=== PATIENT | male | born 1980 | race Caucasian/White ===

== ENCOUNTER 2020-07-12 09:07 | Emergency (ER) | payer BC, SELFPAY ==
[2020-07-12 09:08] VITALS: BP 140/79; PULSE 85; RESP 20; TEMP 36.3; O2SAT 100
--- NOTE | 2020-07-12 11:19 | ED.EPISTAXIS ---
HPI - Epistaxis General Chief complaint: Epistaxis Stated complaint: R NOSE BLEED Time Seen by Provider: 07/12/20 09:20 Source: patient Mode of arrival: ambulatory Limitations: no limitations History of Present Illness HPI Narrative: 40-year-old with a history of anxiety disorder here with complaints of bleeding from the right nostril. Patient states that it he was having blood in his mouth he thinks its posterior nasal bleed. He denies similar symptoms in the past. 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 Denies any trauma MD complaint: epistaxis Location: right nostril Onset (ago): day(s) (1) Duration: intermittent Related Data Home Medications Medication Instructions Recorded Confirmed alprazolam 07/12/20 bupropion HCl PO 07/12/20 zolpidem 07/12/20 Allergies Allergy/AdvReac Type Severity Reaction Status Date / Time No Known Allergies Allergy Verified 07/12/20 09:10 Review of Systems Review of Systems: All systems reviewed & are unremarkable except as noted in HPI and below Constitutional: Constitutional: Reports no additional constitutional complaints Eyes: Eyes: Reports no additional eye complaints ENT: Reports as per HPI Cardiovascular: Cardiovascular: Reports no additional cardiovascular complaints Respiratory: Respiratory: Reports no additional respiratory complaints Gastrointestinal: Gastrointestinal: Reports no additional gastrointestinal complaints PMFSH Social History Social History Gender identity (if verbalized by the patient): Male Exam Narrative: Exam Narrative: GENERAL: Well-appearing, well-nourished, and in no acute distress. HEAD: Normocephalic, atraumatic. EYES: PERRLA and EOMI. ENT: Naresno active bleeding ld the right nare are swollen NECK: Supple. CHEST: Clear to auscultation. No respiratory distress. HEART: Regular rate and rhythm. No murmur heard. Normal peripheral pulses. EXTREMITIES: Normal range of motion. No edema. SKIN: Warm, dry, no rash. NEURO: No focal deficits. Alert and oriented x3. PSYCH: Normal mood . Course Course Emergency Course: Patient had no further episodes of nasal bleed while he was here in the ER. I have given him Zach-Synephrine nasal spray . Vital Signs Vital signs: Vital Signs Temperature 36.3 C L 07/12/20 09:08 Pulse Rate 85 07/12/20 09:08 Respiratory Rate 20 07/12/20 09:08 Blood Pressure 140/79 07/12/20 09:08 Pulse Oximetry 100 07/12/20 09:08 Temperature 36.3 C L 07/12/20 09:08 Pulse Rate 85 07/12/20 09:08 Respiratory Rate 20 07/12/20 09:08 Blood Pressure 140/79 07/12/20 09:08 Pulse Oximetry 100 07/12/20 09:08 Discharge Plan Discharge Clinical Impression: Epistaxis Patient Disposition: Home, Self-Care Condition: Stable Instructions: Antibiotic Form, Nosebleed (ED) Additional Instructions: Advised to use Zach-Synephrine for nasal spray as prescribed, also recommended him to follow-up with ENT Prescriptions: No Action bupropion HCl 150 mg tablet sustained-release 12 hr PO RF: 0 alprazolam 0.25 mg tablet RF: 0 zolpidem 10 mg tablet RF: 0 Follow-up/Referrals: Roni Ty MD [Physician] - [facility],MEETA Maldonado [Primary Care Provider] - Time of Disposition:
[2020-07-12 11:30] VITALS: BP 140/79; PULSE 78; RESP 18; O2SAT 100
== END 2020-07-12 11:30 | disposition home or self-care (01) ==
PROVIDERS: Emergency Provider Family Medicine; PCP Physician Assistant
DX: R04.0 Epistaxis (principal); F41.9 Anxiety disorder, unspecified
CPT/HCPCS: 99283; A9270

== ENCOUNTER 2020-08-31 11:22 | Emergency (ER) | payer BC, SELFPAY ==
--- NOTE | ~2020-08-31 | CT_ITS ---
EXAMINATION: CT lumbar spine wo con DATE: 08/31/2020 11:52 INDICATION: Low back pain. TECHNIQUE: Computed tomography (CT) of the lumbar spine was performed without intravenous contrast. A utomated exposure control and iterative reconstruction technique were employed. The dose-length produ ct was 752.72 mGy-cm. COMPARISON: None FINDINGS: There is 4 degrees dextrocurvature of lumbar spine. There is 4 mm retrolisthesis of L5 on S 1. Vertebral body heights are normal. There is mildly decreased disc height at L5-S1. The following d isc levels are specifically discussed: L1-L2: The disc does not extend beyond the endplate margin. There is mild bilateral facet joint osteo arthritis. There is no neural foraminal stenosis. There is no central canal stenosis. L2-L3: The disc does not extend beyond the endplate margin. There is mild bilateral facet joint osteo arthritis. There is no neural foraminal stenosis. There is no central canal stenosis. L3-L4: The disc does not extend beyond the endplate margin. There is mild bilateral facet joint osteo arthritis. There is mild left neural foraminal stenosis. There is no central canal stenosis. L4-L5: The disc is bulging. There is mild bilateral facet joint osteoarthritis. There is mild bilater al neural foraminal stenosis. There is mild central canal stenosis. L5-S1: The disc is bulging with superimposed left central extrusion with mass effect on left S1 nerve root in left lateral recess. There is mild bilateral facet joint osteoarthritis. There is mild right and moderate left neural foraminal stenosis. There is mild central canal stenosis. IMPRESSION: 1. Moderate lower lumbar spondylosis with large extrusion at L5-S1 with mass effect on left S1 nerve root. Reviewed, dictated and finalized at location A. IMPRESSION: 1. Moderate lower lumbar spondylosis with large extrusion at L5-S1 with mass ef fect on left S1 nerve root.
[2020-08-31] MEDS: KETOROLAC 30 MG/ML VIAL (*BKC) IV PUSH (12:03)
[2020-08-31] MEDS: fentaNYL CITRATE INJ (*CRX) 100 MCG/2 ML VIAL 50 MCG IV PUSH (12:04)
[2020-08-31 12:13] LABS: Basophils Percent Auto 0.7 % (0.2-1.2); Eosinophils Absolute Auto 0.1 K/mm3 (0-0.3); Hematocrit 46.6 % (42.0-52.0); Hemoglobin 15.8 g/dL (14.0-18.0); Immature Granulocyte Absolute 0.01 K/mm3 (0.00-0.031); Immature Granulocyte Percent A 0.2 % (0-0.5); Lymphocytes Absolute Auto 1.43 K/mm3 (0.9-3.2); Lymphocytes Percent Auto 23.3 % (18.3-44.2); Mean Corpuscular HGB Conc 33.9 g/dl (32-36); Mean Corpuscular Hemoglobin 30.2 pg (26-34); Mean Corpuscular Volume 88.9 fl (80-100); Mean Platelet Volume 10.1 fl (7.4-10.4); Monocytes Absolute Auto 0.5 K/mm3 (0.1-0.6); Monocytes Percent Auto 8.3 % (2.6-8.5); Neutrophils Absolute Auto 4.1 K/mm3 (1.3-6.7); Neutrophils Percent Auto 66.5 % (45.5-73.1); Platelet Count Result 216 k/mm3 (150-375); Red Blood Count 5.24 M/mm3 (4.6-6.20); Red Cell Distribution Width 12.3 % (11.5-14.5); White Blood Count 6.2 K/mm3 (4.5-10.0)
[2020-08-31] MEDS: DEXAMETHASONE SOD PHOS INJ 4 MG/ML VIAL 10 MG IV PUSH (12:13)
[2020-08-31] MEDS: LORazepam INJ (*CRX) 2 MG/ML VIAL 0.5 MG IV PUSH (12:21)
[2020-08-31 12:23] LABS: Anion Gap 4 mmol/L (8-16); Blood Urea Nitrogen 17 mg/dL (9-20); Calcium 10.2 mg/dL (8.4-10.2); Carbon Dioxide 31 mmol/L (22-30); Chloride 106 mmol/L (98-107); Estimated Glomerular Filt Rate > 60; Glucose 101 mg/dL (75-110); Potassium 4.1 mmol/L (3.4-5.0); Sodium 141 mmol/L (137-145)
--- NOTE | 2020-08-31 13:01 | ED.BACK ---
HPI - Back Pain/Injury General Chief Complaint: Back Pain/Injury Stated Complaint: back pain/sciatic pain Time Seen by Provider: 08/31/20 11:28 Source: patient Mode of arrival: ambulatory Limitations: no limitations History of Present Illness HPI Narrative: 40-year-old with a history of anxiety disorder here with complaints of low back pain on and off for past 2 weeks. Patient states that he was sledding 3 wks ago had pain in the tailbone area for 2 weeks and for past 1 week been having left-sided sciatic pain. He states that he woke up with severe pain this morning occasionally his left leg gets numb. He denies any bladder or bowel incontinence. MD elicited complaint: back pain Timing: constant Severity: moderate Similar Symptoms Previously: No Quality: dull and aching Radiation: left leg below the knee Exacerbating factors: movement Relieving factors: other (Lying on prone position) Associated symptoms: denies other symptoms Related Data Home Medications Medication Instructions Recorded Confirmed alprazolam 07/12/20 bupropion HCl PO 07/12/20 zolpidem 07/12/20 Allergies Allergy/AdvReac Type Severity Reaction Status Date / Time No Known Allergies Allergy Verified 07/12/20 09:10 Review of Systems Review of Systems: All systems reviewed & are unremarkable except as noted in HPI and below Constitutional: Constitutional: Reports no additional constitutional complaints ENT: Reports system reviewed and no additional complaints, except as documented Cardiovascular: Cardiovascular: Reports no additional cardiovascular complaints Respiratory: Respiratory: Reports no additional respiratory complaints Gastrointestinal: Gastrointestinal: Reports no additional gastrointestinal complaints Genitourinary: Genitourinary: Reports no additional male genitourinary complaints Musculoskeletal: Musculoskeletal: Reports as per HPI Neurologic: Reports system reviewed and no additional complaints, except as documented [facility] Social History Social History Gender identity (if verbalized by the patient): Male Exam Narrative: Exam Narrative: GENERAL: Well-appearing, thin , and in no acute distress.pt feels comfortable lying in prone position HEAD: Normocephalic, atraumatic. EYES: PERRLA and EOMI.. NECK: Supple. CHEST: Clear to auscultation. No respiratory distress. HEART: Regular rate and rhythm. No murmur heard. Normal peripheral pulses. ABDOMEN: Soft, nontender, nondistended, normal active bowel sounds. EXTREMITIES: Normal range of motion. No edema. SKIN: Warm, dry, no rash. NEURO: No focal deficits. Alert and oriented x3. PSYCH: Normal mood and affect. Course Course Emergency Course: Did obtain a CT of his lumbar spine which shows L5-S1 disc herniation. Discussed with Dr. Torres orthopedic surgeon at [facility] , recommended Medrol Dosepak along with gabapentin and hydrocodone will see him in the office in the next few days. Patient states his pain is slightly improved with pain medication. Patient does feel comfortable going home and following with Dr. Torres in the next few days. MDM - Back Pain/Injury MDM Narrative Medical decision making narrative: With a given history of recent injury and occasional numbness to his left leg and get a CT of the lumbar spine noncontrast also does CBC and chemistry make sure that he has no discitis. We will give him fentanyl, Decadron and Ativan for pain control. Lab Data Result diagrams: 08/31/20 12:00 08/31/20 12:00 Labs: Lab Results 08/31/20 08/31/20 Range/Units 12:00 12:00 WBC 6.2 (4.5-10.0) K/mm3 RBC 5.24 (4.6-6.20) M/mm3 Hgb 15.8 (14.0-18.0) g/dL Hct 46.6 (42.0-52.0) % MCV 88.9 (80-100) fl MCH 30.2 (26-34) pg MCHC 33.9 (32-36) g/dl RDW 12.3 (11.5-14.5) % Plt Count 216 (150-375) k/mm3 MPV 10.1 (7.4-10.4) fl Immature Gran % (Auto) 0
[2020-08-31 13:31] LABS: Add Urine Microscopic? YES; Appearance Urine Clear (Clear); Bacteria Urine Trace /hpf; Bilirubin Urine Negative (Negative); Blood Urine Negative (Negative); Color Urine Yellow (Yellow); Glucose Urine UA Negative (Negative); Ketones Urine Trace mg/dL (Negative); Leukocyte Esterase Ur Negative LEU/UL (Negative); Mucus Urine Few /lpf; Nitrate Urine Negative (Negative); Protein Urine Negative (Negative); RBC Urine 0-2 /hpf (0-2); Specific Grav Ur 1.021 (1.001-1.035); Urobilinogen Urine Negative mg/dL (<2.0); WBC Urine 0-3 /hpf
--- NOTE | 2020-08-31 18:35 | PC.NURSE ---
Pt was given 0.5mg of Ativan by this RN. Med would not scan while in AUG, called charge nurse Kimberly to witness that med was not scanning. Was informed to go ahead and give med. Waste cheat was completed and sent to pharmacy.
== END 2020-08-31 13:55 | disposition home or self-care (01) ==
PROVIDERS: Emergency Provider Family Medicine; PCP Physician Assistant
DX: M51.27 Other intervertebral disc displacement, lumbosacral region (principal); M47.816 Spondylosis without myelopathy or radiculopathy, lumbar region
CPT/HCPCS: 36415; 72131; 80048; 81001; 85025; 96374; 96375; 99284; J1100; J1885; J2060; J3010

== ENCOUNTER 2023-06-22 16:33 | Emergency (ER) | payer OTHER, SELFPAY ==
--- NOTE | 2023-06-22 16:41 | ED.GENADULT ---
HPI - General Adult General Chief complaint: Upper Respiratory Infection Stated complaint: Cough/Shortness of Breath Source: patient, RN notes reviewed and old records reviewed Mode of arrival: ambulatory Limitations: no limitations History of Present Illness HPI narrative: 43-year-old male patient presents to [facility] with complaints sinus congestion, cough, headache, myalgias that started on 06/11/2023. patient states he thinks he had COVID but never took a test. Patient taking [id number] medications but states symptoms are getting worse patient states now has green phlegm production and bilateral ear pressure/popping, and sinus pain. MD complaint: sinus congestion/pain Onset (ago): day(s) () Related Data Home Medications Medication Instructions Recorded Confirmed alprazolam 0.25 mg tablet 07/12/20 lisinopril 5 mg tablet mg 06/22/23 Allergies Allergy/AdvReac Type Severity Reaction Status Date / Time No Known Allergies Allergy Verified 07/12/20 09:10 Review of Systems Constitutional: Constitutional: Reports no additional constitutional complaints, Denies body ache(s), Denies chills, Reports fatigue, Denies fever(s) and Reports headache(s) Eyes: Eyes: Reports no additional eye complaints and Denies blurry vision ENT: Reports system reviewed and no additional complaints, except as documented, Denies vertigo, Denies dizziness, Denies ear discharge, Reports otalgia, Denies facial pain, Reports headache(s), Reports nasal congestion, Reports nasal discharge, Reports sinus pain, Reports sinus pressure and Denies sore throat Cardiovascular: Cardiovascular: Reports no additional cardiovascular complaints, Denies chest pain, Denies chest pain at rest, Denies rapid heart rate and Denies dyspnea Respiratory: Respiratory: Reports no additional respiratory complaints, Reports chest congestion, Reports cough, Denies pain on inspiration, Denies pain with cough and Denies dyspnea Gastrointestinal: Gastrointestinal: Denies abdominal pain, Denies diarrhea, Denies nausea and Denies vomiting Integumentary/Breasts: Skin/Breast: Denies rash Neurologic: Reports system reviewed and no additional complaints, except as documented, Denies vertigo, Denies dizziness and Denies headache(s) Endocrine: Endocrine: Denies fatigue [facility] Social History Social History Gender identity (if verbalized by the patient): Male Comments At the time of my signature, I reviewed and agree with the nursing past medical, surgical, social, and family history. There is no relevant family history pertinent to the patient complaint. Exam Const: General: cooperative, healthy appearing, no acute distress and well nourished Nutritional Appearance: well nourished Orientation/consciousness: patient oriented x3 Limitations: no limitations HENMT: Head: normal to inspection and normocephalic Ears: external ears normal, TM's normal bilaterally, mastoids normal and Abnormal EAC present Face/Nose/Sinus: Abnormal mucous membranes and turbinates present boggy and erythematous and Nasal discharge present purulent Face and sinus: no erythema and sinus tenderness maxillary Mouth: Yes Normal oral and palatal mucosa present, Yes oropharynx normal and Yes moist mucous membranes Throat: tonsils normal, uvula midline and no uvular edema Eyes: General: appearance normal, both eyes and all related structures Sclera: sclerae normal Pupils: Equal, round and reactive pupils present Resp: Effort & Inspection: normal respiratory effort, able to speak in complete sentences, no audible wheezes, no cough, no respiratory distress and no retractions Auscultation: clear to auscultation bilaterally, no crackles, no rales, no rhonchi and no wheezes Cardio: Rate: regular rate Rhythm: regular rhythm Skin: General skin exam: normal color and no rashes or lesions noted Neuro: General: patient oriented x3 Cranial nerves:
[2023-06-22 16:44] VITALS: BP 123/86; PULSE 85; RESP 16; TEMP 36.3; O2SAT 100
== END 2023-06-22 16:55 | disposition home or self-care (01) ==
PROVIDERS: Emergency Provider Registered Nurse; PCP Hospitalist
DX: J01.90 Acute sinusitis, unspecified (principal)
CPT/HCPCS: 99213; G0463

== ENCOUNTER 2025-06-10 10:32 | Emergency (ER) | payer OTHER, SELFPAY ==
[2025-06-10 10:40] VITALS: BP 147/84; PULSE 70; RESP 18; TEMP 36.4; O2SAT 100
--- NOTE | 2025-06-10 10:46 | ED.URI ---
HPI - URI/Sore Throat General Chief Complaint: Upper Respiratory Infection Stated Complaint: URI Source: patient Mode of arrival: ambulatory Limitations: no limitations History of Present Illness HPI Narrative: this is a 45-year-old male patient that presents with a five-day history of cough, sore throat, sinus tenderness and nausea. Patient states he has a very harsh nonproductive cough. A lot of sinus drainage. During the exam he got notification that his 3-year-old just tested positive for influenza A. He denies any other distress or concerns otherwise. No shortness of breath or chest pain no diarrhea. patient has a good appetite and is able to intake fluids MD elicited complaint: fever, cough, sore throat, rhinorrhea, nasal congestion and sinus pain Onset (ago): day(s) (5) Consistency: constant Severity: mild Able to tolerate fluids by mouth: Yes Exacerbating factors: nothing Relieving factors: nothing Context: sick contacts Associated symptoms: fever, chills, myalgias, rhinorrhea, nasal congestion, sore throat and cough Treatments prior to arrival: acetaminophen Related Data Home Medications ?Medication ?Instructions ?Recorded ?Confirmed ?Last Taken ?Type alprazolam 0.25 mg tablet 07/12/20 Unknown History lisinopril 5 mg tablet mg 06/22/23 Unknown History Allergies Allergy/AdvReac Type Severity Reaction Status Date / Time No Known Allergies Allergy Verified 06/10/25 10:34 Review of Systems Review of Systems: All systems reviewed & are unremarkable except as noted in HPI and below PMFSH Social History Social History Gender identity (if verbalized by the patient): Male Exam Const: General: healthy appearing Nutritional Appearance: well nourished Orientation/consciousness: patient oriented x3 Limitations: no limitations HENMT: Head: normal to inspection Ears: external ears normal Face/Nose/Sinus: Nasal discharge present mucoid Face and sinus: sinus tenderness frontal and maxillary Mouth: Yes Normal oral and palatal mucosa present Teeth and gingiva: dentition normal Throat: posterior oropharynx normal Eyes: Conjunctivae: conjunctivae normal Pupils: Equal, round and reactive pupils present EOM: EOMs intact bilaterally Neck: Neck: normal visual inspection and no lymphadenopathy Resp: Effort & Inspection: normal respiratory effort Auscultation: clear to auscultation bilaterally Cardio: Rate: regular rate Rhythm: regular rhythm GI: GI Palp: Yes Soft to palpation Auscultation: normal bowel sounds Skin: General skin exam: normal color Rashes: no rashes Wounds: no wounds Neuro: General: patient oriented x3 Cranial nerves: Yes Nystagmus not present Speech: normal speech Gait exam (Neuro): Normal gait present Extrem: General: normal to inspection and no clubbing, cyanosis or edema Psych: Mental Status: mental status grossly normal Affect: normal affect Attitude: cooperative Course Course Emergency Course: this is a 45-year-old male patient that presents with a five-day history of cough, sore throat, sinus tenderness and nausea. Patient states he has a very harsh nonproductive cough. A lot of sinus drainage. During the exam he got notification that his 3-year-old just tested positive for influenza A. He denies any other distress or concerns otherwise. No shortness of breath or chest pain no diarrhea. patient has a good appetite and is able to intake fluids vitals signs stable Influenza, Strep negative. Discussed treatment and management. will send for antibiotics. Educated on symptom management follow-up. Educated him to Increase fluids, rest, Continue with symptomatic management,- cough and cold medication as package instructions - Tylenol Motrin as needed for pain and fever - Vicks Vaporub for cough suppression, Antibiotic as prescribed. follow-up with your PCP in next 1-2 days for further evaluation exam Return immediately to the emergency department any worrisome sign or symptom. answered all of their questions to their satisfaction they are agreeable to this plan. They deny any further needs or concerns to be addressed prior to discharge answered all questions to satisfaction he is agreeable plan. Denies any further needs or concerns to be addressed prior to discharge Level of Care: Express Care Visit Vital Signs Vital signs: Vital Signs Temperature 97.6 F 06/10/25 10:40 Pulse Rate 70 06/10/25 10:40 Respiratory Rate 18 06/10/25 10:40 Blood Pressure 147/84 H 06/10/25 10:40 Pulse Oximetry 100 06/10/25 10:40 Oxygen Delivery Room Air 06/10/25 10:40 Temperature 97.6 F 06/10/25 10:40 Pulse Rate 70 06/10/25 10:40 Respiratory Rate 18 06/10/25 10:40 Blood Pressure 147/84 H 06/10/25 10:40 Pulse Oximetry 100 06/10/25 10:40 Oxygen Delivery Room Air 06/10/25 10:40 [employer] Narrative Medical decision making narrative: this is a 45-year-old male patient that presents with a five-day history of cough, sore throat, sinus tenderness and nausea. Patient states he has a very harsh nonproductive cough. A lot of sinus drainage. During the exam he got notification that his 3-year-old just tested positive for influenza A. He denies any other distress or concerns otherwise. No shortness of breath or chest pain no diarrhea. patient has a good appetite and is able to intake fluids vitals signs stable Influenza, Strep negative. Discussed treatment and management. will send for antibiotics. Educated on symptom management follow-up. Educated him to Increase fluids, rest, Continue with symptomatic management,- cough and cold medication as package instructions - Tylenol Motrin as needed for pain and fever - Vicks Vaporub for cough suppression, Antibiotic as prescribed. follow-up with your PCP in next 1-2 days for further evaluation exam Return immediately to the emergency department any worrisome sign or symptom. answered all of their questions to their satisfaction they are agreeable to this plan. They deny any further needs or concerns to be addressed prior to discharge answered all questions to satisfaction he is agreeable plan. Denies any further needs or concerns to be addressed prior to discharge Differential Diagnosis Differential Diagnosis: influenza a, strep, viral syndrome, sinusitis Medical Records I have reviewed the following patient records and this information was taken into consideration when formulating the assessment and plan.: previous labs, previous ER visits and previous clinic visits Lab Data [facility] Lab Attestation statement: I personally reviewed the patient's lab results. Lab results narrative: influenza a and B negative, strep negative Labs: Lab Results 06/10/25 Range/Units 11:10 POC Influenza A Ag Negative (Negative) POC Influenza B Ag Negative (Negative) POC Grp A Strep Screen Negative (Negative) Discharge Plan Discharge Clinical Impression: Upper respiratory infection Qualifiers: URI type: unspecified URI Qualified Code(s): J06.9 - Acute upper respiratory infection, unspecified Patient Disposition: Home Condition: Stable Instructions: Antibiotic Form, Upper Respiratory Infection (ED) Additional Instructions: Increase fluids, rest, Continue with symptomatic management,- cough and cold medication as package instructions - Tylenol Motrin as needed for pain and fever - Vicks Vaporub for cough suppression, Antibiotic as prescribed. follow-up with your PCP in next 1-2 days for further evaluation exam Return immediately to the emergency department any worrisome sign or symptom. Patient Language: [place] Citizen Prescriptions: New azithromycin [Zithromax Z-Esteban] 250 mg tablet See Rx Instructions .ROUTE .COMPLEX Qty: 6 0RF Rx Instructions: For 250 mg dose pack: take 500 mg today (day 1), then 250 mg for 4 days (days 2-5) No Action lisinopril 5 mg tablet amoxicillin-pot clavulanate 875-125 mg tablet 1 tablet PO Q12H 7 Days Qty: 14 0RF alprazolam 0.25 mg tablet Follow-up/Referrals: Marcellus,MD Carlos [Primary Care Provider, Unknown] Time of Disposition: 11:15
[2025-06-10 11:11] LABS: EDINFLUASCREEN Negative (Negative); EDINFLUBSCREEN Negative (Negative); EDSTREPNEGPOS1 Negative (Negative)
--- OUTSIDE RECORDS SUMMARY | 2025-06-10 12:09 | XMS_ITS | Encounter Summary ---
Author Organization [facility] Healthcare Address [address] [place] [address] Care Team Providers Care Support Director Name Role Phone Carlos Germain MD Primary Care Provider [phone] Keke Concepcion PT Unavailable Unavailable Reason for Visit * Reason Onset Date Comments Anxiety/Depression 06/07/2025 Migraine 06/07/2025 Shortness of Breath 06/07/2025 Encounter Details Date Type Department Care Team (Late st Contact Info) Description 06/07/2025 Nurse Triage [facility] [address] [place] [address] Carlos Germain MD [address] [place] [address] Social History Tobacco Use Types Packs/Day Years Used Date Smoking Tobacco: Never Smokeless Tobacco: Never Alcohol Use Standard Drinks/Week Comments No 0 (1 standard drink = 0.6 oz pur e alcohol) AUDIT-C Answer Date Recorded Q1: How often do you have a drink containing alc ohol? Monthly or less 01/26/2023 Q2: How many drinks containi ng alcohol do you have on a typical day when you are drinking? 1 or 2 01/26/2023 Q3: How often do you have si x or more drinks on one occasion? Never 01/26/2023 PHQ-2 Answer Date Recorded PHQ-2 Total Score (If total score is 3 or more points, staff should administer the PHQ-9) 3 05/13/2025 PHQ-9 Answer Date Recorded PHQ-9 Total Score 12 05/13/2025 Personal Safety Answer Date Recorded Have you ever been in or are you currently in a harmful physical or emotional relationship or is someone making you feel afraid or unsafe? Denies 12/16/2022 Sex and Gender Information Value Date Recorded Sex Assigned at Not on file Legal Sex Male 12:11 AM [employer] Gender Identity Not on file Sexual Orientation Not on file documented as of this encounter Miscellaneous Notes * Telephone Encounter - Dominique Vaughn MA - 06/10/2025 9:34 AM CST VIET Germain [employer] * Telephone Encounter - Katy Diamond RN - 06/07/2025 5:16 PM [employer] Reason for Conversation Anxiety/Depression, Migraine, and Shortness of Breath Background Pt in ER 05/15/25 for worsening symptoms of headache/sinus pressure, dizziness, blurred vision, eardiscomfort from a visit beginning of the month of April 2025. Pt calls today with increased feelings of anxiety, depression, migraine, sob, blurred vision, and dizziness. Pt reports he has beenmany places and main concern is trying to get in to see psychiatrist and see what is going on. Pt states from doctor's notes it seems like this has stemmed from him suddenly stopping his xanax for 2 weeks on his own. Pt states he had an episode of depression today thinking of going through these bouts waiting for the next steps and feels he is at a dangerous level. Pt states, I feel like thereis a beach ball inside my chest. Pt reports chest pain comes and goes when anxious. Pt states he is sob and has chest pain now at time of call. Pt states chest pain lasts more than 5 minutes. Pt would like to discuss starting Cymbalta for depression and discuss weaning off xanax and ambien. Pt also reports he went to a walk in psychiatry office in [place], [place] today, 06/07/25 and no doctors were available to see him. Pt was advised to call 911/go to ER. Pt declined as he has already gone to ER. Pt does have psychiatrist appt in Jul 2025 scheduled and scheduled OV with PCP on 06/25/25. Routing to office as an FYI ofrefusal of 911 disposition and Office Follow up for earlier appt needed . Disposition Call EMS 911 Now, See More Appropriate Protocol Reason for Disposition Chest Pain [1] Chest pain lasts > 5 minutes AND [2] age > 44 Protocols Used Chest Lsgt-Mjurq-MM Anxiety and Panic Bmgeiv-Eddsh-NU [employer] * Telephone Encounter - Katy Diamond RN - 06/07/2025 5:07 PM [employer] Regarding: anxiety, migraine, blurred vision, dizziness, sob, depression ----- Message from September sent at 06/07/2025 4:55 PM [employer] ----- Symptom Based Call Chief Complaint(s): anxiety, migraine, blurred vision, dizziness, sob, depression Duration: 2 months What type of symptom(s) is the patient experiencing? Red Flag. Is the patient concerned they are experiencing a medical emergency requiring an ambulance? No Additional Comments: He has been seen many places but he just needs something now to help. Not surehe can wait until Jun 25. Does message need to be routed? Yes-Action Needed [employer] documented in this encounter Plan of Treatment Not on file documented as of this encounter Visit Diagnoses Not on filedocumented in this encounter Care Teams Support Director Relationship Specialty Start Date End Date Carlos [place] [address] PCP - General Family Medicine 11/09/21 Keke Concepcion, PT Physical Therapist Physical Therapy 03/03/22 documented as of this encounter
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
--- OUTSIDE RECORDS SUMMARY | 2025-06-10 12:09 | XMS_ITS | Encounter Summary ---
Author Organization [facility] Healthcare Address [address] [place] [address] Care Team Providers Care Cnc Mill And Lathe Operator Name Role Phone Carlos Germain MD Primary Care Provider [phone] Keke Concepcion PT Unavailable Unavailable Reason for Visit * Reason Onset Date Comments Vertigo 05/15/2025 Nasal Congestion 05/15/2025 Encounter Details Date Type Department Care Team (Late st Contact Info) Description 05/15/2025 Nurse Triage [facility] [address] [address] Carlos Germain MD [address] [place] [address] SHAHZAD (generalized anxiety disorder) (Primary Dx) Social History Tobacco Use Types Packs/Day Years [...] on file Legal Sex 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 He was prescribed Augmentin for 10 days, and at this point has only had approximately 4 days of medication. When he called, he only had about 2 days of medication. I want him to completely finish the Augmentin. For his increased anxiety during this time, I am sending in hydroxyzine 25 mg every 6 hours as needed. This is actually an antihistamine type medication, so not a controlled substance like the alprazolam that he is prescribed. He can see how this helps with his anxiety, since he agrees that his anxiety is high currently. If he is still having symptoms after the Augmentin has finished, he should definitely schedule an appointment in the office with 1 of the providers. L COMPANY HAZMAT DRIVER * Telephone Encounter - Melba Smith RN - 05/15/2025 9:41 AM CST Reason for Conversation Vertigo and Nasal Congestion Background Pt seen in office 05/13/2025, started on antibiotics and meclizine that day. Reports no improvementin symptoms, states that he is an active person, still completing daily tasks but he continues to having intermittent nausea, dizziness, head pressure, vision blurred. States that he is taking medication as prescribed and meclizine makes him feel like his anxiety medication does so maybe a little improvement from it. He is concerned he may have a vestibular migraine and is seeking a CT or referral to a specialist. States that his anxiety is increased and he needs to find out what is wrong so hecan relax and get better. Denies any other symptoms. Home care provided and pt advised to call backwith new or worsening symptoms. Encounter routed to the clinical pool. Please advise Bc Britton recommendations, he is still taking the antibiotic, inquiring about CT scan and referral Disposition Callback by PCP Today Reason for Disposition Taking antibiotic > 48 hours (2 days) and fever still present (SAME) Protocols Used Infection on Antibiotic Follow-up [id number] [employer] HAZMAT DRIVER * Telephone Encounter - Melba Smith RN - 05/15/2025 9:27 AM CST Regarding: Dizziness, vertigo, off balance, and pressure in head ----- Message from Marco Bustillos sent at 05/15/2025 9:24 AM LOCAL COMPANY HAZMAT DRIVER ----- Symptom Based Call Chief Complaint(s): Dizziness, vertigo, off balance, and pressure in head Duration: Two week and worsening What type of symptom(s) is the patient experiencing? Red Flag. Is the patient concerned they are experiencing a medical emergency requiring an ambulance? No Additional Comments: The amoxicillin-clavulanate (AUGMENTIN) 875-125 mg per tablet and meclizine (ANTIVERT) 12.5 mg tablet prescribed on 05/13/25 has not lessened the symptoms at all. Does message need to be routed? Yes-Action Needed [employer] HAZMAT DRIVER documented in this encounter Plan of Treatment Not on file documented as of this encounter Visit Diagnoses Diagnosis SHAHZAD (generalized anxiety disorder)- Primary Generalized anxiety disorder documented in this encounter Care Teams Cnc Mill And Lathe Operator Relationship Specialty Start Date End Date [place] [address] PCP - General Family Medicine 11/09/21 Keke Concepcion, PT Physical Therapist Physical Therapy 03/03/22 documented as of this encounter
--- OUTSIDE RECORDS SUMMARY | 2025-06-10 12:09 | XMS_ITS | Encounter Summary ---
Author Organization [facility] Healthcare Address [address] [place] [address] Care Team Providers Care Pack Train Driver Name Role Phone Carlos Germain MD Primary Care Provider [phone] Keke Concepcion PT Unavailable Unavailable Encounter Details Date Type Department Care Team (Latest Contact Info) Description 05/07/2025 Results Follow-Up [facility] [place] [address] [place] [address] Katy Burris, JOB ANALYST [address] [facility] [address] [place] [address] Electrocardiogram Report Social History Tobacco Use Types Packs/Day Years [...] more points, staff should administer the PHQ-9) 0 12/20/2024 Personal Safety Answer Date Recorded Have you ever been in or are you currently in a harmful physical or emotional relationship or is someone making you feel afraid or unsafe? Denies 12/16/2022 Sex and Gender Information Value Date Recorded Sex Assigned at Not on file Legal Sex Male 12:11 AM ARCHIVAL RECORDS CLERK Gender Identity Not on file Sexual Orientation Not on file documented as of this encounter Plan of Treatment Not on file documented as of this encounter Visit Diagnoses Not on filedocumented in this encounter Additional Health Concerns Infection Onset Date Last Indicated Resolved Time COVID: Suspected 05/13/2025 05/13/2025 05/13/2025 1:47 PM ARCHIVAL RECORDS CLERK documented as of this encounter Care Teams Pack Train Driver Relationship Specialty Start Date End Date Carlos Germain MD [address] [place] [address] PCP - General Family Medicine 11/09/21 Keke Concepcion PT Physical Therapist Physical Therapy 03/03/22 documented as of this encounter
--- OUTSIDE RECORDS SUMMARY | 2025-06-10 12:10 | XMS_ITS | Patient Health Record ---
Author Organization [facility] , Address [address] [place] [address] Care Team Providers Care Enrollment Management Manager Name Role Phone Pedrito Pinzon Primary Care Provider Unavailab Montero Carlos Unavailable [phone] Reason For Referral No Information Medications Medication SIG (Take, Route, Frequency, Duration) Notes Start Date End Date Status Medrol (Esteban) Not-Giovanni ing predniSONE 10 MG Tablet 1 tablet Orally twice a day 09/04/2020 Not-Taking Promethazine HCl 12.5 MG Tablet 1 tablet as needed Orally every 6 -8 hours 06/26/2021 Active Percocet 5-325 MG Tablet 1 tablet as nee ded Orally every 4 hrs; Duration: 7 days 06/24/2021 Not-Taking Neurontin 300 MG Capsule 1 capsule Orall y Three times a day 09/04/2020 Not-Taking Gabapentin Active Hydrocodone Bitartrate Active Senna Plus Active Medrol (Esteban) 4 MG Tablet as directed on the package Orally as directed on the package; Duration: 6 days 09/28/2021 Active Ibuprofen 800 MG Tablet 1 tablet Orally Three times a day; Duration: 30 day(s) 06/15/2021 Active Social History Section Notes: with 3 children. Den ies alcohol or tobacco use. Denies drug or chemical addiction. with 3 children. Den ies alcohol or tobacco use. Denies drug or chemical addiction. with 3 children. Den ies alcohol or tobacco use. Denies drug or chemical addiction. with 3 children. Den ies alcohol or tobacco use. Denies drug or chemical addiction. Problems Problem Type SNOMED Code ICD Code Onset Dates Problem Status W/U Status Risk Notes Problem Lumbar radiculopathy (527588668) Lumbar radiculopathy (M54.16) Active confirmed Problem Prolapsed lumbar intervertebral disc (869225202) Lumbar disc herniation (M51.26) Active confirmed Problem Displacement of lumbar intervertebral disc without myelopathy (20020326) Herniated nucleus pulposis of lumbosacral region (M51.27) Active confirmed Problem Displacement of lumbar intervertebral disc without myelopathy (20020326) Herniated nucleus pulposus, L5-S1 (M51.27) Active confirmed Problem Displacement of lumbar intervertebral disc without myelopathy (20020326) Displacement of intervertebral disc of lumbar region (M51.26) Active confirmed Problem Displacement of lumbar intervertebral disc without myelopathy (20020326) Herniated intervertebral disc of lumbar spine (M51.26) Active confirmed Plan Of Treatment Pending Test Test Name Order Date Lumbar Microdiscectomy 05/26/2021 Insurance Providers Payer Name Payer Address Payer Phone Subscriber Number Group Number Insured Name Patient Relationship to Insured Coverage Start Date Coverage End Date [employer] [address] [place] [address] [id number] 1 Alo Flores Spouse - patient is the spouse of the insured 2 Morgan [employer] [address] [place] [address] [id number] Bc Flynn Self - patient is the insured 1 Medical (General) History Medical History History ICD Code Anxiety Surgical History Surgery Date(Month/Year)
--- OUTSIDE RECORDS SUMMARY | 2025-06-10 12:10 | XMS_ITS | Clinical Summary ---
Author Organization [facility] Address [address] [place] [address] Phone Care Team Providers Care Teacher Of The Handicapped Name Role Phone Carlos Germain MD Primary Care Provider [phone] Allergies No known active allergies Medications meclizine (ANTIVERT) 12.5 mg tablet Take 12.5 mg by mouth 3 times daily as needed. 5 Active zolpidem (AMBIEN CR) 12.5 mg Controlled Release tablet Take 12.5 mg by mouth nightly as needed for Insomnia. Active ALPRAZolam (XANAX) 0.5 mg tablet Take 0.5 mg by mouth nightly as needed for Anxiety. Active RIBOFLAVIN, VITAMIN B2, ORAL Take 1 Tablet by mouth daily. Active ubidecarenone (COENZYME Q10 ORAL) Take 1 Tablet by mouth daily. Active OTHER Take 1 Tablet by mouth daily at bedtime. Magnesium Active amoxicillin-cla vulanate (AUGMENTIN) 875-125 mg tablet Take 1 Tablet by mouth 2 times daily. 5 05/23/20 25 Encounters Date Type Department Care Team Description 05/28/2025 8:40 AM NURSE SCHOOL Video Visit [facility] Virtual Neurology [address] [place] [address] Clifford Delgado MD Disequilibrium syndrome (Primary Dx); PTSD (post-traumatic stress disorder); Idiopathic sleep related nonobstructive alveolar hypoventilation 05/24/2025 Telephone [facility]rology [address] [facility] [address] [place] [address] Clifford Delgado MD Appointment Notification 05/21/2025 External Device Data ST[facility] ABSTRACTION Provider, Abstract 05/21/2025 External Device Data [facility] ABSTRACTION Provider, Abstract 05/21/2025 External Device Data [facility] ABSTRACTION Provider, Abstract 05/15/2025 6:31 PM NURSE SCHOOL - 05/15/2025 11:35 PM NURSE SCHOOL Emergency [facility] Emergency Department [address] [place] [address] Nereyda Alarcon MD Nonintractable headache, unspecified chronicity pattern, unspecified headache type (Primary Dx) Discharge Disposition: Home or Self Care from Last 3 Months Social History Tobacco Use Types Packs/Day Years Used Date Smoking Tobacco: Never Assessed Food Insecurity Answer Date Recorded Do you find you are eating l ess than you should because you can t pay for food? No 05/15/2025 Transportation Needs Answer Date Record ed Have you gone without health care because you didn t have a way to get there? Or worry about transportation for future doctor visits, poultry picker medication, etc.? No 2024 Housing Stability Answer Date Recorded Do you worry you won t have a steady place to sleep or struggle to pay rent or mortgage? No 05/15/2025 Utility Needs Answer Date Recorded Do you have difficulty payin g for utility costs (electric, water or gas bills)? No 05/15/2025 Medication Needs Answer Date Recorded Have you skipped taking medi cation due to cost or worry you can t afford new medications? No 05/15/2025 Feeling Safe Answer Date Recorded Are you in a relationship wi th someone who hurts you emotionally and/or physically? No 05/15/2025 Sex and Gender Information Value Date Recorded Sex Assigned at Not on file Legal Sex Male 5:32 PM NURSE SCHOOL Gender Identity Not on file Sexual Orientation Not on file Last Filed Vital Signs Vital Sign Reading Time Taken Comments Blood Pressure 147/87 05/15/2025 11:30 PM NURSE SCHOOL Pulse 61 05/15/2025 11:30 PM NURSE SCHOOL Temperature 36.9 C (98.4 F) 05/15/2025 11:30 PM NURSE SCHOOL Respiratory Rate 16 05/15/2025 11:30 PM NURSE SCHOOL Oxygen Saturation 97% 05/15/2025 11:30 PM NURSE SCHOOL Inhaled Oxygen Concentration - - Weight - - Height - - Body Mass Index - - Plan of Treatment Upcoming Encounters Date Type Department Care Team (Late st Contact Info) Description 09/24/2025 12:30 PM CDT Office Visit [facility] Neurology [address] [place] [address] Juana Thrasher MD [address] [place] [address] 10/15/2025 3:00 PM CDT Office Visit [facility] Pulmonology [facility] [address] [place] [address] Douglas Dias MD [address] [place] [address] Health Maintenance Due Date Last Done Comments Pre-Diabetes and Diabetes Screening 1979 HEPATITIS B VACCINES (1 of 3 - 19+ 3-dose series) 1998 COLORECTAL SCREENING 2024 Colorectal Cancer Screening 2024 FIT-DNA Q 3 years 2024 FIT/FOBT Q 1 year 2024 Flex Sig/CT Colonography Q 5 years 2024 INFLUENZA VACCINE (#1) 2025 , 05/03/2023, 08/13/2022 COVID-19 Vaccine (2024- season) 2025, 09/12/2020 DTAP/TDAP/TD VACCINES (2 - T d or Tdap) 07/30/2029 07/30/2019 HPV VACCINES (No Doses Required) Completed Procedures Procedure Name Priority Date/Time Associated Diagnosis Comments CT 2D RECONSTRUCTION Stat 05/15/2025 9:34 PM NURSE SCHOOL CTA HEAD AND NECK W AND/OR WO CONTRAST Stat 05/15/2025 9:33 PM NURSE SCHOOL POC CREATININE Stat 05/15/2025 7:24 PM NURSE SCHOOL from Last 3 Months Results * CT 2D RECONSTRUCTION (05/15/2025 9:34 PM NURSE SCHOOL) Anatomical Region Laterality Modality Computed Tomogra phy 05/15/2025 9:16 PM NURSE SCHOOL Impressions 05/15/2025 9:51 PM NURSE SCHOOL IMPRESSION: 1. No acute fracture or malalignment. 2. Degenerative changes, detailed above. No significant spinal canal stenosis. DICTATION LOCATION: Location 4 Narrative 05/15/2025 9:51 PM NURSE SCHOOL EXAMINATION: CT 2D RECONSTRUCTION DATE: 05/15/2025 9:34 PM HISTORY: Dizziness. Sinus pressure. TECHNIQUE: Noncontrast CT images of the cervical spine were obtained according to standard protocol. The examination was performed with the adjustment of mA according to the patient size and/or the use of Iterative Reconstruction Technique. COMPARISON: None FINDINGS: ALIGNMENT: No acute malalignment. VERTEBRAE: No acute fracture. No destructive osseous lesion. DISC SPACES: Tiny disc-osteophyte complex at C5-C6, without significant spinal canal stenosis. Moderate right and mild/moderate left foraminal stenosis at this level due to uncovertebral arthropathy. Tiny disc-osteophyte complex at C6-C7, without significant spinal canal stenosis. Disc-osteophyte complex at C7-T1, asymmetric to the left, along with mild/moderate left facet arthropathy. No spinal canal stenosis at this level. Moderate left foraminal stenosis. SOFT TISSUES: No significant pathology. LUNG APICES: Unremarkable. Procedure Note Brian Brewer MD - 05/15/2025 EXAMINATION: CT 2D RECONSTRUCTION DATE: 05/15/2025 9:34 PM HISTORY: Dizziness. Sinus pressure. TECHNIQUE: Noncontrast CT images of the cervical spine were obtained according to standard protocol. The examination was performed with the adjustment of mA according to the patient size and/or the use of Iterative Reconstruction Technique. COMPARISON: None FINDINGS: ALIGNMENT: No acute malalignment. VERTEBRAE: No acute fracture. No destructive osseous lesion. DISC SPACES: Tiny disc-osteophyte complex at C5-C6, without significant spinal canal stenosis. Moderate right and mild/moderate left foraminal stenosis at this level due to uncovertebral arthropathy. Tiny disc-osteophyte complex at C6-C7, without significant spinal canal stenosis. Disc-osteophyte complex at C7-T1, asymmetric to the left, along with mild/moderate left facet arthropathy. No spinal canal stenosis at this level. Moderate left foraminal stenosis. SOFT TISSUES: No significant pathology. LUNG APICES: Unremarkable. IMPRESSION: 1. No acute fracture or malalignment. 2. Degenerative changes, detailed above. No significant spinal canal stenosis. DICTATION LOCATION: Location 4 us Nereyda Alarcon MD CT ORDERABLES Final Result * CTA HEAD AND NECK W AND/OR WO CONTRAST (05/15/2025 9:33 PM NURSE SCHOOL) Anatomical Region Laterality Modality Head Computed Tomogra phy 05/15/2025 9:16 PM NURSE SCHOOL Impressions 05/15/2025 9:47 PM NURSE SCHOOL IMPRESSION: 1. Non-contrast head CT demonstrates no acute intracranial hemorrhage and no evidence of acute ischemic infarct. 2. CTA of the neck demonstrates no acute abnormality. 3. Tortuous right cervical ICA, with a tiny (2 mm) medially projecting aneurysm. 4. CTA of the head demonstrates no arterial occlusion or high grade stenosis. DICTATION LOCATION: Location 4 Narrative 05/15/2025 9:47 PM NURSE SCHOOL EXAMINATION: COMPUTED TOMOGRAPHY ANGIOGRAPHY (CTA) OF THE HEAD AND NECK WITH AND WITHOUT IV CONTRAST DATE: 05/15/2025 9:33 PM HISTORY: Central vertigo. TECHNIQUE: Rapid LVO Detection Software was not utilized. Noncontrast head CT was obtained. CTA was obtained from the aortic arch to the vertex following the uneventful administration of intravenous contrast. 3D MIP images were reconstructed and reviewed. The examination was performed with the adjustment of mA according to the patient size and/or the use of Iterative Reconstruction Technique. Contrast information: 80 mL Isovue-300. COMPARISON: None available. FINDINGS: NON-CONTRAST HEAD CT: No acute intracranial hemorrhage or infarct. No midline shift or mass effect. Normal ventricular size. Remote left orbital floor fracture. Minimal fluid in the left maxillary sinus. CTA NECK: Aortic arch and great vessels: Smooth and nonstenotic proximal great vessels. Right carotid: Normal RCCA. Normal appearance of the bifurcation. Normal ICA origin with less than 25% luminal narrowing by NASCET criteria. Tortuous cervical ICA. Tiny (2 mm) aneurysm projects medially from the cervical ICA just proximal to vascular tortuosity. Left carotid: Normal LCCA. Normal appearance of the bifurcation. Normal ICA origin with less than 25% luminal narrowing by NASCET criteria. Normal distal cervical ICA. Right vertebral artery: Normal. Left vertebral artery: Normal. Vertebral dominance: Dominant left vertebral artery. Visualized soft tissues of the neck: No cervical lymphadenopathy. No evidence of a mass in the visualized aerodigestive tract. Unremarkable mediastinum. Unremarkable pulmonary arteries, as visualized. Unremarkable lung apices. Cervical spine degenerative changes noted. CTA HEAD: Internal carotid arteries: Normal. Anterior cerebral arteries: Normal. Middle cerebral arteries: Normal. Anterior communicating artery: Present. Posterior communicating arteries: Not well visualized. Vertebral arteries: Normal intracranial segments. Basilar artery: Normal. Posterior cerebral arteries: Normal. No evidence of aneurysm or vascular malformation. No evidence of dural venous sinus thrombosis. Procedure Note Brian Brewer MD - 05/15/2025 EXAMINATION: COMPUTED TOMOGRAPHY ANGIOGRAPHY (CTA) OF THE HEAD AND NECK WITH AND WITHOUT IV CONTRAST DATE: 05/15/2025 9:33 PM HISTORY: Central vertigo. TECHNIQUE: Rapid LVO Detection Software was not utilized. Noncontrast head CT was obtained. CTA was obtained from the aortic arch to the vertex following the uneventful administration of intravenous contrast. 3D MIP images were reconstructed and reviewed. The examination was performed with the adjustment of mA according to the patient size and/or the use of Iterative Reconstruction Technique. Contrast information: 80 mL Isovue-300. COMPARISON: None available. FINDINGS: NON-CONTRAST HEAD CT: No acute intracranial hemorrhage or infarct. No midline shift or mass effect. Normal ventricular size. Remote left orbital floor fracture. Minimal fluid in the left maxillary sinus. CTA NECK: Aortic arch and great vessels: Smooth and nonstenotic proximal great vessels. Right carotid: Normal RCCA. Normal appearance of the bifurcation. Normal ICA origin with less than 25% luminal narrowing by NASCET criteria. Tortuous cervical ICA. Tiny (2 mm) aneurysm projects medially from the cervical ICA just proximal to vascular tortuosity. Left carotid: Normal LCCA. Normal appearance of the bifurcation. Normal ICA origin with less than 25% luminal narrowing by NASCET criteria. Normal distal cervical ICA. Right vertebral artery: Normal. Left vertebral artery: Normal. Vertebral dominance: Dominant left vertebral artery. Visualized soft tissues of the neck: No cervical lymphadenopathy. No evidence of a mass in the visualized aerodigestive tract. Unremarkable mediastinum. Unremarkable pulmonary arteries, as visualized. Unremarkable lung apices. Cervical spine degenerative changes noted. CTA HEAD: Internal carotid arteries: Normal. Anterior cerebral arteries: Normal. Middle cerebral arteries: Normal. Anterior communicating artery: Present. Posterior communicating arteries: Not well visualized. Vertebral arteries: Normal intracranial segments. Basilar artery: Normal. Posterior cerebral arteries: Normal. No evidence of aneurysm or vascular malformation. No evidence of dural venous sinus thrombosis. IMPRESSION: 1. Non-contrast head CT demonstrates no acute intracranial hemorrhage and no evidence of acute ischemic infarct. 2. CTA of the neck demonstrates no acute abnormality. 3. Tortuous right cervical ICA, with a tiny (2 mm) medially projecting aneurysm. 4. CTA of the head demonstrates no arterial occlusion or high grade stenosis. DICTATION LOCATION: Location [address] ORDERABLES Final Result * POC CREATININE (05/15/2025 7:24 PM NURSE SCHOOL) CREATININE POC 1.10 0.70 - 1.20 mg/dL 05/15/2025 7:24 PM NURSE SCHOOL [facility] [employer] [facility] GFR POC >60 >=60 mL/min/1.7 3 sq meter 05/15/2025 7:24 PM NURSE SCHOOL [facility] [employer] [facility] Comment:eGFR calculated with 2020 CKD-EPI equation. Vegetarian diet, extremely high or low muscle mass, and may affect results. Cystatin C with Glomerular Filtration Rate is a suitable alternative for these patients. Blood, whole 05/15/2025 7:24 PM NURSE SCHOOL 05/15/2025 7:28 PM NURSE SCHOOL Nereyda Alarcon MD POINT OF CARE TESTING Final Re sult [facility] [employer] [facility]# [id number] [address] [place] [id number] from Last [address] [place] [address] [facility] ONLY Care Teams Teacher Of The Handicapped Relationship Specialty Start Date End Date Carlos Germain MD [address] [facility] [address] [place] [address] PCP - General Family Practice 05/28/25
== END 2025-06-10 11:16 | disposition home or self-care (01) ==
PROVIDERS: Emergency Provider Nurse Practitioner Family; PCP Hospitalist
DX: J06.9 Acute upper respiratory infection, unspecified (principal)
CPT/HCPCS: 87081; 87804; 87880; 99213; G0463